=== PATIENT | male | born 1990 | race African-American/Black ===

== ENCOUNTER 2017-05-22 07:23 | Emergency (ER) | payer MEDICAID, SELFPAY ==
[2017-05-22] MEDS ORDERED: Ketorolac Tromethamine 60 MG/2 ML VIAL ONE (08:14)
== END 2017-05-22 08:30 | disposition home or self-care (01) ==
LOC: ERS 07:23
DX: M54.5 Low back pain (principal); F17.210 Nicotine dependence, cigarettes, uncomplicated
CPT/HCPCS: 96372; J1885

== ENCOUNTER 2019-02-06 03:33 | Emergency (ER) | payer SELFPAY ==
[2019-02-06 03:58] LABS: #Eosinphils 0.1 thou/uL (0.0-0.7); #Lymphocytes 3.1 thou/uL (1.20-3.40); #Monocytes 0.5 thou/uL (0.11-0.59); %Basophils 0.4 % (0.0-1.0); %Eosinophils 1.1 % (0.0-10.0); %Lymphocytes 31.6 % (21.0-51.0); %Monocytes 5.6 % (0.0-10.0); %Neutrophils 61.4 % (42.0-75.0); Hemoglobin 15.7 g/dL (14.0-18.0); Mean Corpuscular HGB CONC 34.9 g/dL (32.0-36.0); Mean Corpuscular Hemoglobin 30.3 pg (27.0-31.0); Mean Corpuscular Volume 86.8 fL (78.0-98.0); Mean Platelet Volume 7.3 fL (7.4-10.4); Platelet Count 257 thou/uL (130-400); RBC Distribution Width 11.1 % (11.5-14.5); Red Blood Cell (RBC) Count 5.19 mill/uL (4.70-6.10); White Blood Cell (WBC) Count 9.7 thou/uL (4.8-10.8)
[2019-02-06 04:17] LABS: ALT (SGPT) 43 U/L (8-55); AST (SGOT) 30 U/L (5-34); Albumin 4.8 g/dL (3.5-5.0); Alcohol Less than 10 mg/dL (Less than 10); Alkaline Phosphatase 63 U/L (40-150); Anion Gap 16 mmol/L (10-20); BUN (Urea Nitrogen) 11 mg/dL (8.9-20.6); Bilirubin, Total 0.5 mg/dL (0.2-1.2); CK (CPK) 777 U/L (30-200); Calc. Creatinine Clearance 0 mL/min (70-130); Calcium 10.2 mg/dL (7.8-10.44); Carbon Dioxide 22 mmol/L (22-29); Chloride 104 mmol/L (98-107); Estimated GFR-MDRD Greater than 90; Globulin 2.9 g/dL (2.4-3.5); Glucose 131 mg/dL (70-105); Potassium 3.3 mmol/L (3.5-5.1); Protein, Total 7.7 g/dL (6.0-8.3); Salicylate 13.3 mg/dL (15.0-30.0); Sodium 139 mmol/L (136-145)
[2019-02-06 05:43] LABS: Bilirubin Negative (Negative); Blood, Urine Negative (Negative); Clarity CLEAR (Clear); Glucose, Urine (Dipstick) Negative (Negative); Leukocyte Negative (Negative); Nitrite Negative (Negative); Protein, Urine (Dipstick) Negative (Neg-Trace); Specific Gravity, Urine 1.028 (1.002-1.036); Urobilinogen 0.2 mg/dL (0.2-1.0); pH, Urine 5.5 (5.0-9.0)
[2019-02-06 05:55] LABS: Medtox Reader # READER 1
[2019-02-06 05:56] LABS: Amphetamine Not Detected (NotDetected); Barbiturates Screen Not Detected (NotDetected); Benzodiazepine Screen Not Detected (NotDetected); Cocaine Metabolite Screen Not Detected (NotDetected); Medtox Control Line Valid? VALID (VALID); Methadone Not Detected (NotDetected); Methamphetamine Not Detected (NotDetected); Opiate Screen Not Detected (NotDetected); Oxycodone Screen Not Detected (NotDetected); Phencyclidine (PCP) Not Detected (NotDetected); THC/Cannabinoid Screen Detected (NotDetected); Tricyclic Screen Not Detected (NotDetected)
[2019-02-06 06:50] LABS: Alcohol Less than 10 mg/dL (Less than 10); Salicylate 14.7 mg/dL (15.0-30.0)
[2019-02-06 10:40] LABS: Acetaminophen Less than 6.0 mcg/mL (10.0-30.0); Alcohol Less than 10 mg/dL (Less than 10); CK (CPK) 597 U/L (30-200); Salicylate 12.3 mg/dL (15.0-30.0)
[2019-02-06] MEDS ORDERED: Nicotine 14 MG PATCH TOP SCH (16:15)
--- NOTE | 2019-02-10 10:26 | EKG ---
Test Reason : Blood Pressure : / mmHG Vent. Rate : 060 BPM Atrial Rate : 060 BPM P-R Int : 156 ms QRS Dur : 084 ms QT Int : 390 ms P-R-T Axes : 065 042 026 degrees QTc Int : 390 ms Normal sinus rhythm with sinus arrhythmia Normal ECG Confirmed by DELMIS DINH ([id number]), publication editor RODERICK MILLS ([id number]) on 02/10/2019 10:26:08 AM Referred By: Confirmed By:DELMIS DINH
--- NOTE | 2019-02-10 16:10 | EKG ---
Test Reason : SI Blood Pressure : / mmHG Vent. Rate : 060 BPM Atrial Rate : 060 BPM P-R Int : 164 ms QRS Dur : 082 ms QT Int : 390 ms P-R-T Axes : 044 035 019 degrees QTc Int : 390 ms Normal sinus rhythm with sinus arrhythmia Normal ECG Confirmed by DAVION TAN M.D. ([id number]), state editor RODERICK MILLS ([id number]) on 02/10/2019 4:10:13 PM Referred By: Confirmed By:DAVION TAN M.D.
== END 2019-02-06 16:53 ==
LOC: ERS 03:33
DX: T40.7X2A Poisoning by cannabis (derivatives), intentional self-harm, initial encounter (principal); F17.210 Nicotine dependence, cigarettes, uncomplicated
CPT/HCPCS: 36415; 80053; 80306; 80307; 81003; 82550; 84443; 85025; 93005; 96360; 96361

== ENCOUNTER 2019-10-07 22:25 | Emergency (ER) | payer SELFPAY | END 2019-10-07 22:56 | disposition home or self-care (01) | LOC: ERS 22:25 | DX: S02.5XXA Fracture of tooth (traumatic), initial encounter for closed fracture (principal); K02.9 Dental caries, unspecified; F17.210 Nicotine dependence, cigarettes, uncomplicated; Z71.6 Tobacco abuse counseling; X58.XXXA Exposure to other specified factors, initial encounter | CPT/HCPCS: 99406 ==